=== PATIENT | male | born 1980 | race African-American/Black ===

== ENCOUNTER 2018-04-06 09:20 | Emergency (ER) | payer BC ==
[~2018-04-06] VITALS: Ht 172.7 cm; Wt 74.0 kg
[2018-04-06] MEDS ORDERED: KETOROLAC 60MG/2ML VIAL IM ONE (12:30)
[2018-04-06] MEDS ORDERED: HYDROCODONE/ACETAMINOPHEN 10/325MG TABLET PO ONE (13:45)
[2018-04-06 14:39] VITALS: BP 109/73
== END 2018-04-06 14:45 | disposition home or self-care (01) ==
LOC: ER 10:03
DX: R09.1 Pleurisy (principal); M54.89 Other dorsalgia; F17.200 Nicotine dependence, unspecified, uncomplicated; F12.10 Cannabis abuse, uncomplicated
CPT/HCPCS: 71045; 96372; 99283; J1885; Z7610